=== PATIENT | female | born 1965 | race Caucasian/White ===

== ENCOUNTER 2022-06-27 17:52 | Outpatient (REF) | payer OTHER, SELFPAY ==
--- NOTE | ~2022-06-27 | MR_ITS ---
MR CERVICAL SPINE WITHOUT CONTRAST CLINICAL INFORMATION: Myelopathy. Rule out recurrent cord compression. COMPARISON: None available. TECHNIQUE: MRI of the cervical spine was obtained using routine sequences without contrast. FINDINGS: There is retrosubluxation of C4 on C5. There is mild anterior subluxation of C7 on T1. Postoperative changes status post ACDF at the C5-C7 levels. The vertebral body heights are maintained. There is severe disc volume loss at C4-C5 and there is moderate disc volume loss at C7-T1. There is no bone marrow edema. There are no acute fractures. The craniocervical junction is unremarkable. Absent left cervical vertebral artery flow void suggesting slow flow within versus occlusion of this vessel. No significant extraspinal soft tissue findings. C2-C3: Disc osteophyte without central canal stenosis. Uncovertebral joint hypertrophy and hypertrophic facet arthropathy result in mild bilateral foraminal encroachment. C3-C4: Disc osteophyte without central canal stenosis. Uncovertebral joint spurring and hypertrophic facet arthropathy result in moderate right and mild left foraminal stenosis. No central canal stenosis. C4-C5: Retrosubluxation. A large disc extrusion exhibiting superior left paracentral migration results in severe central canal stenosis and significant compression of the cervical cord. Intramedullary T2 signal changes within the cord at this level, most likely from compressive myelopathy. Advanced uncovertebral joint hypertrophy and hypertrophic facet arthropathy result in severe bilateral foraminal stenosis. C5-C6: ACDF changes. Osteophytic ridging mildly narrows the central canal and results in mild bilateral foraminal encroachment. Chronic myelomalacia at this level. C6-C7: ACDF changes. Osteophytic ridging mildly narrows the central canal and results in moderate to severe bilateral foraminal stenosis. Chronic myelomalacia within the cord at this level. C7-T1: There is mild anterior subluxation. Disc osteophyte and ligamentum flavum thickening result in mild central canal stenosis and severe bilateral foraminal stenosis. MR/MR cervical spine wo con IMPRESSION: - At the junctional C4-C5 level, retrosubluxation and a large disc extrusion result in severe central canal stenosis, compression of the cervical spinal cord, and severe bilateral foraminal stenosis. Intramedullary T2 signal changes within the cord at this level, most likely from compressive myelopathy. A cervical spine CT would be helpful in assessing whether the disc herniation is soft or if there is any disc osteophyte and/or ossification of the posterior longitudinal ligament. - Postoperative changes following ACDF at the C4-C5 and C5-C6 levels. There is chronic myelomalacia within the cervical cord and there has been postoperative decompression of the central canal at both of these levels. Osteophytic ridging results in moderate to severe bilateral foraminal stenosis at C6-C7. - At C7-T1, anterior subluxation in the setting of advanced facet arthropathy and disc osteophyte result in severe bilateral foraminal stenosis. - Absent left cervical vertebral artery flow void suggesting slow flow within versus occlusion of this vessel. Covering provider paged with these findings at 938 PM on 06/27/2022.
== END 2022-06-27 17:53 | disposition home or self-care (01) ==
LOC: HO.MRI 17:52
PROVIDERS: Visit Provider Psychiatry & Neurology Neurology
DX: G95.9 Disease of spinal cord, unspecified (principal)
CPT/HCPCS: 72141